=== PATIENT | male | born 1980 | race Caucasian/White ===

== ENCOUNTER 2017-04-21 18:49 | Emergency (ER) | payer OTHER ==
--- NOTE | 2017-04-21 22:56 | ED NURSING NOTES ---
Clinical Report - Nurses [facility] [address] [place] [address] 04/21/2017 18:49 Patient: LUCIO WEST TRIAGE Triage time 19:44. Acuity: LEVEL 3. Chief Complaint: ABDOMINAL PAIN, NAUSEA and VOMITING. --19:49 Sean Pierce R.N. 19:44 04/21/17. BP: 136/86. HR: 86. RR: 16. O2 saturation: 100%. Temp: 97.9 F. Pain level now: 08/10. --19:49 Sean Pierce R.N. Weight: 68 kg. --19:47 Sean Pierce R.N.. Height/Length: 67 inches. BMI: 23.5. --19:43 Sean Pierce R.N. Medications Amitriptyline HCl External. Omeprazole Oral. Oscimin Sublingual. OxyCODONE HCl Oral. Phenergan (Promethazine) Oral. PROzac Oral. Reglan Oral. --19:45 Sean Pierce R.N. Medication/allergy information source: the patient. --19:49 Sean Pierce R.N. Allergies Ketamine. (Hallucinations) Toradol. Definite Severe(swelling) Vicodin. Definite Moderate(nausea) Zofran. Definite Moderate(swelling) --19:45 Sean Pierce R.N. History Arrived by private vehicle. Historian: patient. ( 4 day history of abdominal pain with nausea and vomiting, diarrhea 3/7 ago but not anymore. No fever.). Onset. (4 days ago). He has had severe nausea. It has been similar to previous symptoms, vomiting. The vomiting has been dark in color and abdominal pain. The pain is described as generalized. 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 (Oxycodone). SURGERY HX: Appendectomy. Back surgery. Craniotomy. Left knee surgery. SOCIAL HX: Light tobacco smoker (cigarette)- less than 1/2 a pack per day. --19:49 Sean Pierce R.N. Interventions ID band on patient. To room. --19:49 Sean Pierce R.N. PHYSICAL ASSESSMENT Ambulatory to room. GENERAL / NEURO / PSYCH: Alert. Oriented X 4. Appears in no acute distress. HEENT: Mucous membranes are pink. RESPIRATORY: Respirations not labored. Breath sounds within normal limits. CVS: Capillary refill less than 2 seconds. GI / : The patient has had constant nausea. Dark emesis noted. Abdomen soft. Abdominal tenderness diffusely. Bowel sounds within normal limits. SKIN: Skin is warm. Skin is slightly diaphoretic. --19:50 Sean Pierce R.N. NURSING PROGRESS NOTES Patient gowned. Head of bed elevated. Patient identifiers checked. Call light placed in reach. Side rails up x 1. Bed placed in lowest position. Brakes of bed on. Patient ready for evaluation- ED physician and INDIVIDUAL PENSION ADVISER notified. --19:50 Sean Pierce R.N. 21:04/21/2017 Site #1 started via IV in the right wrist with an 22g angiocath; one attempt. Blood drawn: rainbow set. Labeled in the presence of the patient and sent to the lab. Saline lock flushed with 5 mL saline. --21:07 Sean Pierce R.N. 21:04/21/2017 Started IV Fluids IV NS (Saline); bolus of 1000 mL over 1 hour(s) via site #1 via IV pump. Allergies verified and confirmed 5 rights. IV patency established. IV site checked: no pain, redness, or swelling. IV flushed thoroughly pre- and post-medication administration. --21: Sean Pierce R.N. 21:04/21/2017 Reglan (Metoclopramide HCl) IVP 10 mg given over 2 hour(s) via site #1. Allergies verified and confirmed 5 rights. IV patency established. IV site checked: no pain, redness, or swelling. IV flushed thoroughly pre- and post-medication administration. IVP given by RN. --21: Sean Pierce R.N. Patient ID band checked: patient confirmed. Blood samples drawn from the right wrist with Vacutainer: rainbow set. GI / : The patient reports generalized abdominal pain that is moderate in severity, is described as crampy and is associated with nausea. --21:11 Sean Pierce R.N. 21:13 04/21/2017 PHENERGAN (Promethazine HCl) IVP 12.5 mg given over 5 minute(s) via site #1. Allergies verified and confirmed 5 rights. IV patency established. IV site checked: no pain, redness, or swelling. IV flushed thoroughly pre- and post-medication administration. IVP given by RN. --21:13 Sean Pierce R.N. 21:15 04/21/17. BP: 132/80. HR: 90. RR: 18. O2 saturation: 100%. Pain level now: 07/10. --21:17 Sean Pierce R.N. Reassessment after medication administered. Overall patient status is the same- he states feels the same. GI / : The patient reports nausea. The patient reports abdominal pain. Bowel sounds within normal limits. SKIN: Skin is warm. Skin color within normal limits. --21:17 Sean Pierce R.N. 22:44 04/21/2017 KCL (Potassium Chloride ER) PO Tablets 40 meq given. Allergies verified and confirmed 5 rights. --22:49 Sean Pierce R.N. 22:46 04/21/2017 PHENERGAN (Promethazine HCl) IVP 12.5 mg given over 5 minute(s) via site #1. Allergies verified and confirmed 5 rights. IV patency established. IV site checked: no pain, redness, or swelling. IV flushed thoroughly pre- and post-medication administration. --22:51 Sean Pierce R.N. 22:46 04/21/2017 HALDOL (Haloperidol Lactate) IVP 2 mg given over 3 minute(s) via site #1. Allergies verified, confirmed 5 rights and sedative warning given to the patient. IV patency established. IV site checked: no pain, redness, or swelling. IV flushed thoroughly pre- and post-medication administration. IVP given by RN. --22:51 Sean Pierce R.N. 22:51 04/21/17. BP: 114/78. HR: 82. RR: 18. O2 saturation: 100%. Temp: 98.5 F. --22:53 Sean Pierce R.N. Reassessment after medication administered. He is resting quietly. Overall patient status is improved- he states feels better. GI / : The patient reports nausea that is mild in severity. The patient reports vomiting is still present but improving, with emesis that is currently described as dark. Abdomen soft. Bowel sounds within normal limits. SKIN: Skin is warm and dry. Skin color within normal limits. --22:53 Sean Pierce R.N. 22:00. Reassessment after medication administered. He is sleeping. --22:54 Sean Pierce R.N. 23:18 04/21/2017 IV Fluids IV NS Discontinued: bag #1 infused upon discharge. Total amount infused: 1000 mL. IV patency established. IV site checked: no pain, redness, or swelling. IV flushed thoroughly. --23:28 Sean Pierce R.N. DISPOSITION / DISCHARGE 23:22 04/21/2017 Site #1 removed upon discharge. Manual pressure applied. --23:27 Sean Pierce R.N. No learning barriers present. Discharge instructions provided and reviewed with the patient. Reviewed medication(s) side effects, precautions, dosing and course information. Prescription(s) given to the patient. Reviewed referral to a primary care physician. Patient verbalized understanding. Written instructions provided in French. The patient was discharged home. He left the Emergency Department ambulatory and via ([employer]). Driving ([employer]). --23:29 Sean Pierce R.N. 23:27 04/21/17. BP: 122/75. HR: 86. RR: 16. O2 saturation: 100%. Temp: 98.7 F. --23:29 Sean Pierce R.N. Departure time: :29. --23:29 Sean Pierce R.N. Locked/Released at 04/21/2017 23:30 by Saen Pierce R.N.
--- NOTE | 2017-04-21 22:56 | ED CLINICAL REPORT ---
Clinical Report - Physicians/Mid Levels [facility] [address] [place] [address] 04/21/2017 18:49 [id number] Time Seen: 20:11 Apr 21 2017. Arrived- By private vehicle. Historian- patient. HISTORY OF PRESENT ILLNESS Chief Complaint: VOMITING and DIARRHEA. This started just prior to arrival and is still present. No recent travel. No vomiting or black stools. The illness is described as mild. (Patient reports diarrhea vomiting over the last 6-7 days. Reports occasional abdominal pain, which has been making him have inability to tolerate his at home medications. Patient reports history of this, with history of prior hospitalizations. History of prior endoscopy, colonoscopy. Patient also in addition has history of chronic back pain, for which she takes narcotics. Vomiting exacerbates his back pain.). REVIEW OF SYSTEMS No fever. All systems otherwise negative, except as recorded above. PAST HISTORY Problems: Head Injury. Pancreatitis. Gastroparesis. Cyclical vomiting syndrome. Additional Surgeries: (L) Knee Surgery. Appendectomy. Back Surgery. Craniotomy. Knee Surgery. Medications: Amitriptyline HCl External. Omeprazole Oral. Oscimin Sublingual. OxyCODONE HCl Oral. Phenergan (Promethazine) Oral. PROzac Oral. Reglan Oral. Allergies: Ketamine. (Hallucinations) Toradol. Definite Severe(swelling) Vicodin. Definite Moderate(nausea) Zofran. Definite Moderate(swelling). SOCIAL HISTORY Smoker- current status unknown. No drug use. PHYSICAL EXAM Appearance: Alert. Eyes: Eyes normal inspection. ENT: Nose normal. Neck: Normal inspection. CVS: Normal heart rate and rhythm. Heart sounds normal. Respiratory: No respiratory distress. Breath sounds normal. No accessory muscle use, rales, rhonchi or wheezes. Abdomen: Soft and nontender. No mass. No abdominal tenderness. The bowel sounds are not abnormal. Back: Normal inspection. LABS, X-RAYS, AND EKG Laboratory Tests: CBC w Diff: (ADRIA: 04/21/2017 21:05) ( MsgRcvd 04/21/2017 21:27) Final results Test Result Flag Units (Reference) WHITE BLOOD COUNT 13.6 H K/uL (4.5-11.5) RED BLOOD COUNT 5.65 M/uL (4.50-5.90) HEMOGLOBIN 14.7 gm/dL (13.5-17.5) HEMATOCRIT 44.6 % (41.0-53.0) MEAN CELL VOLUME 79 L fL (80-100) MEAN CORPUSCULAR HGB 26 pg (26-34) MEAN CORPUSCULAR HGB CONC 33 g/dL (31-37) RED CELL DISTRIBUTION WIDTH 17.6 H % (11.6-14.8) PLATELET COUNT 401 H K/uL (150-400) NEUTROPHIL % 76.9 H % (50-75) LYMPH % 14.4 L % (25-40) MONO % 8.1 % (3-14) EOSINOPHIL % 0 % (0-4) BASOPHIL % 0.6 % (0-2) CMP: (ADRIA: 04/21/2017 21:05) ( MsgRcvd 04/21/2017 21:43) Final results Test Result Flag Units (Reference) GLUCOSE 131 H mg/dL (70-110) BUN 25 H mg/dL (7-18) CREATININE 1.3 mg/dL (0.6-1.3) Estimated GFR >60 mL/min Estimated GFR- >60 mL/min Note: Persistent reduction over 3 months in eGFR<60 mL/min/1.73 m2 defines CKD. Patients with eGFR values>=60 mL/min/1.73 m2 may also have CKD if evidence ofpersistent proteinuria. Additional information may be foundat www.kidney.org. SODIUM 140 mmol/L (136-145) POTASSIUM 3.1 L mmol/L (3.5-5.1) CHLORIDE 100 mmol/L (98-107) CARBON DIOXIDE 26 mmol/L (21-32) CALCIUM 9.7 mg/dL (8.5-10.1) TOTAL PROTEIN 8.7 H g/dL (6.4-8.2) ALBUMIN 4.1 g/dL (3.3-5.0) BILIRUBIN, TOTAL 0.5 mg/dL (0.0-1.0) ALKALINE PHOSPHATASE 129 H U/L (46-116) AST (SGOT) 18 U/L (15-37) ALT (SGPT) 28 U/L (12-78) LIPASE 120 U/L (73-393) . PROGRESS AND PROCEDURES Course of Care: IMMANUEL reviewed as well as recent patient ER visit to [place] on the , as well as an attempt to be seen today, however left without being seen from the waiting room. Discussed concerns with patient. In addition reviewed notes from his pain specialist in regard to know opiate in his urinalysis, however positive for other drug use, and this his pain specialist has stopped prescribing him medications, opiod in nature. 04/21/2017 22:51 BP: 114/78. HR: 82. RR: 18. O2 saturation: 100%. Temp: 98.5 F. Patient is stable. Symptoms better. Patient/family counseled. Differential Diagnosis: I considered gastritis, gastroenteritis, acute appendicitis, mesenteric lymphadenitis, diverticulitis, small bowel obstruction, gallbladder disease, liver disease, pancreatic disease, biliary colic, abdominal pathology, intraabdominal abscess, urologic or gynecologic causes, urinary tract infection, cystitis, ovarian cyst, abdominal aortic aneurysm, myocardial infarction, pneumonia, diabetic ketoacidosis and medications as a possible cause of abdominal pain in this patient. This is a partial list of diagnoses considered. Disposition: Discharged. Condition: good. CLINICAL IMPRESSION Vomiting with nausea, dehydration and volume depletion. Chronic abdominal pain. Hypokalemia INSTRUCTIONS Do not work for two days. Drink plenty of fluids for the next 24 hours. Take clear liquids only. Prescription Medications: Phenergan 12.5 mg suppositories: insert 1 rectally every 6 hours as needed for nausea. Dispense ten (10) Klor-Con 10 mEq: take 1 tablet orally every 8 hours. Dispense twenty (20). No refills. Substitution is permissible. Follow-up: Follow up with your doctor in two days. (Electronically signed by Catalina Woo P.A.-C 04/21/2017 23:30)
--- NOTE | 2017-04-21 22:56 | ED ORDER SUMMARY ---
..... Patient: LUCIO WEST OrderSheet [facility] VisitID: [id number] [address] [place] [address] 36y, M Registration Date/Time: 04/21/2017 ORDER SHEET Weight: 68.0 kg Allergies: Ketamine, Toradol, Vicodin, Zofran GENERAL ORDERS: CBC w Diff Urgent (20:04/21/2017 EKoroleva P.A.-C) (20:39 CHernandez R.N.) CMP Urgent (20:04/21/2017 EKoroleva P.A.-C) (20:39 CHernandez R.N.) UA-Culture if indicated Urgent (20:04/21/2017 EKoroleva P.A.-C) (20:39 CHernandez R.N.) Lipase Urgent (20:04/21/2017 EKoroleva P.A.-C) (20:39 CHernandez R.N.) MEDICATION ORDERS: Phenergan IV 12.5 mg (HIGH ALERT MEDICATION, NOW) (20:09 04/21/2017 EKoroleva P.A.-C) (Ack 20:39 CHernandez R.N.) (21:13 CHernandez R.N.) KCl PO 40 meq (NOW) (21:45 04/21/2017 EKoroleva P.A.-C) (Ack 22:36 CHernandez R.N.) (22:49 CHernandez R.N.) Phenergan IV 12.5 mg (HIGH ALERT MEDICATION, NOW) (22:32 04/21/2017 EKoroleva P.A.-C) (Ack 22:36 CHernandez R.N.) (22:51 CHernandez R.N.) IV FLUIDS: IV NS : initial bolus 1000 mL (1000 mL/hr), then 1000 mL/hr for X1 (NOW); Adal (20:04/21/2017 EKoroleva P.A.-C) (Ack 20:39 CHernandez R.N.) (21:09 CHernandez R.N.) Reglan IV 10 mg (NOW) (20:04/21/2017 EKoroleva P.A.-C) (Ack 20:39 Shelia Campbell) (21:09 Shelia Campbell) Haldol IV 2 mg (HIGH ALERT MEDICATION, NOW) (22:32 04/21/2017 Bethany Lundberg) (Ack 22:36 Shelia Campbell) (22:51 Shelia Campbell) ORDER SHEET NOTES: [Electronically signed by eSan Pierce R.N. (23:30 04/21/2017)] [Electronically signed by Catalina Woo P.A.-C (23:30 04/21/2017)] [Electronically locked/signed by Sean Pierce R.N. (23:30 04/21/2017)]
--- NOTE | 2017-04-21 22:56 | ED NURSING NOTES ---
Clinical Report - Nurses [facility] [address] [place] [address] 04/21/2017 18:49 Patient: LUCIO WEST TRIAGE Triage time 19:44. Acuity: LEVEL 3. Chief Complaint: ABDOMINAL PAIN, NAUSEA and VOMITING. --19:49 Sean Pierce R.N. 19:44 04/21/17. BP: 136/86. HR: 86. RR: 16. O2 saturation: 100%. Temp: 97.9 F. Pain level now: 08/10. --19:49 Sean Pierce R.N. Weight: 68 kg. --19:47 Sean Pierce R.N.. Height/Length: 67 inches. BMI: 23.5. --19:43 Sean Pierce R.N. Medications Amitriptyline HCl External. Omeprazole Oral. Oscimin Sublingual. OxyCODONE HCl Oral. Phenergan (Promethazine) Oral. PROzac Oral. Reglan Oral. --19:45 Sean Pierce R.N. Medication/allergy information source: the patient. --19:49 Sean Pierce R.N. Allergies Ketamine. (Hallucinations) Toradol. Definite Severe(swelling) Vicodin. Definite Moderate(nausea) Zofran. Definite Moderate(swelling) --19:45 Sean Pierce R.N. History Arrived by private vehicle. Historian: patient. ( 4 day history of abdominal pain with nausea and vomiting, diarrhea 3/7 ago but not anymore. No fever.). Onset. (4 days ago). He has had severe nausea. It has been similar to previous symptoms, vomiting. The vomiting has been dark in color and abdominal pain. The pain is described as generalized. 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 (Oxycodone). SURGERY HX: Appendectomy. Back surgery. Craniotomy. Left knee surgery. SOCIAL HX: Light tobacco smoker (cigarette)- less than 1/2 a pack per day. --19:49 Sean Pierce R.N. Interventions ID band on patient. To room. --19:49 Sean Pierce R.N. PHYSICAL ASSESSMENT Ambulatory to room. GENERAL / NEURO / PSYCH: Alert. Oriented X 4. Appears in no acute distress. HEENT: Mucous membranes are pink. RESPIRATORY: Respirations not labored. Breath sounds within normal limits. CVS: Capillary refill less than 2 seconds. GI / : The patient has had constant nausea. Dark emesis noted. Abdomen soft. Abdominal tenderness diffusely. Bowel sounds within normal limits. SKIN: Skin is warm. Skin is slightly diaphoretic. --19:50 Sean Pierce R.N. NURSING PROGRESS NOTES Patient gowned. Head of bed elevated. Patient identifiers checked. Call light placed in reach. Side rails up x 1. Bed placed in lowest position. Brakes of bed on. Patient ready for evaluation- ED physician and MERGERS AND ACQUISITIONS CONSULTANT notified. --19:50 Sean Pierce R.N. 21:04/21/2017 Site #1 started via IV in the right wrist with an 22g angiocath; one attempt. Blood drawn: rainbow set. Labeled in the presence of the patient and sent to the lab. Saline lock flushed with 5 mL saline. --21:07 Sean Pierce R.N. 21:04/21/2017 Started IV Fluids IV NS (Saline); bolus of 1000 mL over 1 hour(s) via site #1 via IV pump. Allergies verified and confirmed 5 rights. IV patency established. IV site checked: no pain, redness, or swelling. IV flushed thoroughly pre- and post-medication administration. --21: Sean Pierce R.N. 21:04/21/2017 Reglan (Metoclopramide HCl) IVP 10 mg given over 2 hour(s) via site #1. Allergies verified and confirmed 5 rights. IV patency established. IV site checked: no pain, redness, or swelling. IV flushed thoroughly pre- and post-medication administration. IVP given by RN. --21: Sean Pierce R.N. Patient ID band checked: patient confirmed. Blood samples drawn from the right wrist with Vacutainer: rainbow set. GI / : The patient reports generalized abdominal pain that is moderate in severity, is described as crampy and is associated with nausea. --21:11 Sean Pierce R.N. 21:13 04/21/2017 PHENERGAN (Promethazine HCl) IVP 12.5 mg given over 5 minute(s) via site #1. Allergies verified and confirmed 5 rights. IV patency established. IV site checked: no pain, redness, or swelling. IV flushed thoroughly pre- and post-medication administration. IVP given by RN. --21:13 Sean Pierce R.N. 21:15 04/21/17. BP: 132/80. HR: 90. RR: 18. O2 saturation: 100%. Pain level now: 07/10. --21:17 Sean Pierce R.N. Reassessment after medication administered. Overall patient status is the same- he states feels the same. GI / : The patient reports nausea. The patient reports abdominal pain. Bowel sounds within normal limits. SKIN: Skin is warm. Skin color within normal limits. --21:17 Sean Pierce R.N. 22:44 04/21/2017 KCL (Potassium Chloride ER) PO Tablets 40 meq given. Allergies verified and confirmed 5 rights. --22:49 Sean Pierce R.N. 22:46 04/21/2017 PHENERGAN (Promethazine HCl) IVP 12.5 mg given over 5 minute(s) via site #1. Allergies verified and confirmed 5 rights. IV patency established. IV site checked: no pain, redness, or swelling. IV flushed thoroughly pre- and post-medication administration. --22:51 Sean Pierce R.N. 22:46 04/21/2017 HALDOL (Haloperidol Lactate) IVP 2 mg given over 3 minute(s) via site #1. Allergies verified, confirmed 5 rights and sedative warning given to the patient. IV patency established. IV site checked: no pain, redness, or swelling. IV flushed thoroughly pre- and post-medication administration. IVP given by RN. --22:51 Sean Pierce R.N. 22:51 04/21/17. BP: 114/78. HR: 82. RR: 18. O2 saturation: 100%. Temp: 98.5 F. --22:53 Sean Pierce R.N. Reassessment after medication administered. He is resting quietly. Overall patient status is improved- he states feels better. GI / : The patient reports nausea that is mild in severity. The patient reports vomiting is still present but improving, with emesis that is currently described as dark. Abdomen soft. Bowel sounds within normal limits. SKIN: Skin is warm and dry. Skin color within normal limits. --22:53 Sean Pierce R.N. 22:00. Reassessment after medication administered. He is sleeping. --22:54 Sean Pierce R.N. 23:18 04/21/2017 IV Fluids IV NS Discontinued: bag #1 infused upon discharge. Total amount infused: 1000 mL. IV patency established. IV site checked: no pain, redness, or swelling. IV flushed thoroughly. --23:28 Sean Pierce R.N. DISPOSITION / DISCHARGE 23:22 04/21/2017 Site #1 removed upon discharge. Manual pressure applied. --23:27 Sean Pierce R.N. No learning barriers present. Discharge instructions provided and reviewed with the patient. Reviewed medication(s) side effects, precautions, dosing and course information. Prescription(s) given to the patient. Reviewed referral to a primary care physician. Patient verbalized understanding. Written instructions provided in Turkish. The patient was discharged home. He left the Emergency Department ambulatory and via ([employer]). Driving ([employer]). --23:29 Sean Pierce R.N. 23:27 04/21/17. BP: 122/75. HR: 86. RR: 16. O2 saturation: 100%. Temp: 98.7 F. --23:29 Sean Pierce R.N. Departure time: :29. --23:29 Sean Pierce R.N. Locked/Released at 04/21/2017 23:30 by Sean Pierce R.N.
--- NOTE | 2017-04-21 22:56 | ED ORDER SUMMARY ---
..... Patient: LUCIO WEST OrderSheet [facility] VisitID: [id number] [address] [place] [address] 36y, M Registration Date/Time: 04/21/2017 ORDER SHEET Weight: 68.0 kg Allergies: Ketamine, Toradol, Vicodin, Zofran GENERAL ORDERS: CBC w Diff Urgent (20:04/21/2017 EKoroleva P.A.-C) (20:39 CHernandez R.N.) CMP Urgent (20:04/21/2017 EKoroleva P.A.-C) (20:39 CHernandez R.N.) UA-Culture if indicated Urgent (20:04/21/2017 EKoroleva P.A.-C) (20:39 CHernandez R.N.) Lipase Urgent (20:04/21/2017 EKoroleva P.A.-C) (20:39 CHernandez R.N.) MEDICATION ORDERS: Phenergan IV 12.5 mg (HIGH ALERT MEDICATION, NOW) (20:09 04/21/2017 EKoroleva P.A.-C) (Ack 20:39 CHernandez R.N.) (21:13 CHernandez R.N.) KCl PO 40 meq (NOW) (21:45 04/21/2017 EKoroleva P.A.-C) (Ack 22:36 CHernandez R.N.) (22:49 CHernandez R.N.) Phenergan IV 12.5 mg (HIGH ALERT MEDICATION, NOW) (22:32 04/21/2017 EKoroleva P.A.-C) (Ack 22:36 CHernandez R.N.) (22:51 CHernandez R.N.) IV FLUIDS: IV NS : initial bolus 1000 mL (1000 mL/hr), then 1000 mL/hr for X1 (NOW); Adal (20:04/21/2017 EKoroleva P.A.-C) (Ack 20:39 CHernandez R.N.) (21:09 CHernandez R.N.) Reglan IV 10 mg (NOW) (20:04/21/2017 EKoroleva P.A.-C) (Ack 20:39 Shelia Campbell) (21:09 Shelia Campbell) Haldol IV 2 mg (HIGH ALERT MEDICATION, NOW) (22:32 04/21/2017 Bethany Lundberg) (Ack 22:36 Shelia Campbell) (22:51 Shelia Campbell) ORDER SHEET NOTES: [Electronically signed by Sean Pierce R.N. (23:30 04/21/2017)] [Electronically signed by Catalina Woo P.A.-C (23:30 04/21/2017)] [Electronically locked/signed by Sean Pierce R.N. (23:30 04/21/2017)]
--- NOTE | 2017-04-21 23:30 | ED MED RECONCILIATION SUMMARY ---
Patient: LUCIO WEST Medication Reconciliation Report [facility] VisitID: [id number] [address] [place] [address] 36y, M Registration Date/Time: 04/21/2017 Weight: 68.0 kg Height/Length: 67 in. BMI: 23.5 ALLERGIES: Ketamine, Toradol, Vicodin, Zofran The patient's Home Medications are listed below: THE FOLLOWING MEDICATIONS NEED TO BE RECONCILED: Amitriptyline HCl External Omeprazole Oral Oscimin Sublingual OxyCODONE HCl Oral Phenergan (Promethazine) Oral PROzac Oral Reglan Oral The source(s) of the original Home Medication information: patient The following Medications were given to the patient in the Emergency Department: IV NS IV Fluids bolus 1000 mL over 1 hour(s), administered: 04/21/2017 9:09:00 PM Reglan [IVP] IVP 10 mg, administered: 04/21/2017 9:09:00 PM PHENERGAN [IVP] IVP 12.5 mg, administered: 04/21/2017 9:13:00 PM KCL [PO] PO 40 meq, administered: 04/21/2017 10:44:00 PM PHENERGAN [IVP] IVP 12.5 mg, administered: 04/21/2017 10:46:00 PM HALDOL [IVP] IVP 2 mg, administered: 04/21/2017 10:46:00 PM The following Medications were prescribed to the patient: Phenergan 12.5 mg suppositories: insert 1 rectally every 6 hours as needed for nausea. Dispense ten (10) -- Catalina Woo P.AMehreen Klor-Con 10 mEq: take 1 tablet orally every 8 hours. Dispense twenty (20). No refills. Substitution is permissible. -- Catalina Woo P.ANadir-C
--- NOTE | 2017-04-21 23:30 | ED MAR SUMMARY ---
..... Medication Administration Record [facility] [address] [place] [address] Patient: LUCIO WEST Visit ID: [id number] 36y, M Weight: 68.0 kg Height/Length: 67 in BMI: 23.5 ALLERGIES: Ketamine, Toradol, Vicodin, Zofran Start 21:04/21/2017 Sean Pierce R.N., Stop 23:18 04/21/2017 Sean Pierce R.N. Medication Administered: IV NS (SALINE), Dose: IV Fluids, Bolus: 1000 mL over 1 hour(s), Site: #1 right wrist. Medication Ordered: IV NS : initial bolus 1000 mL (1000 mL/hr), then 1000 mL/hr for X1 (NOW); Adal. Given 21:04/21/2017 Sean Pierce R.N. Medication Administered: REGLAN [IVP] (METOCLOPRAMIDE HCL), Dose: 10 mg IVP over 2 hour(s), Site: #1 right wrist. Medication Ordered: Reglan IV 10 mg (NOW). Given 21:13 04/21/2017 Sean Pierce R.N. Medication Administered: PHENERGAN [IVP] (PROMETHAZINE HCL), Dose: 12.5 mg IVP over 5 minute(s), Site: #1 right wrist. Medication Ordered: Phenergan IV 12.5 mg (HIGH ALERT MEDICATION, NOW). Given 22:44 04/21/2017 Sean Pierce R.N. Medication Administered: KCL [PO] (POTASSIUM CHLORIDE ER), Dose: 40 meq Tablets PO. Medication Ordered: KCl PO 40 meq (NOW). Given 22:46 04/21/2017 Sean Pierce R.N. Medication Administered: PHENERGAN [IVP] (PROMETHAZINE HCL), Dose: 12.5 mg IVP over 5 minute(s), Site: #1 right wrist. Medication Ordered: Phenergan IV 12.5 mg (HIGH ALERT MEDICATION, NOW). Given 22:46 04/21/2017 Sean Pierce R.N. Medication Administered: HALDOL [IVP] (HALOPERIDOL LACTATE), Dose: 2 mg IVP over 3 minute(s), Site: #1 right wrist. Medication Ordered: Haldol IV 2 mg (HIGH ALERT MEDICATION, NOW).
--- NOTE | 2017-04-21 23:30 | ED MED RECONCILIATION SUMMARY ---
Patient: LUCIO WEST Medication Reconciliation Report [facility] VisitID: [id number] [address] [place] [address] 36y, M Registration Date/Time: 04/21/2017 Weight: 68.0 kg Height/Length: 67 in. BMI: 23.5 ALLERGIES: Ketamine, Toradol, Vicodin, Zofran The patient's Home Medications are listed below: THE FOLLOWING MEDICATIONS NEED TO BE RECONCILED: Amitriptyline HCl External Omeprazole Oral Oscimin Sublingual OxyCODONE HCl Oral Phenergan (Promethazine) Oral PROzac Oral Reglan Oral The source(s) of the original Home Medication information: patient The following Medications were given to the patient in the Emergency Department: IV NS IV Fluids bolus 1000 mL over 1 hour(s), administered: 04/21/2017 9:09:00 PM Reglan [IVP] IVP 10 mg, administered: 04/21/2017 9:09:00 PM PHENERGAN [IVP] IVP 12.5 mg, administered: 04/21/2017 9:13:00 PM KCL [PO] PO 40 meq, administered: 04/21/2017 10:44:00 PM PHENERGAN [IVP] IVP 12.5 mg, administered: 04/21/2017 10:46:00 PM HALDOL [IVP] IVP 2 mg, administered: 04/21/2017 10:46:00 PM The following Medications were prescribed to the patient: Phenergan 12.5 mg suppositories: insert 1 rectally every 6 hours as needed for nausea. Dispense ten (10) -- Catalina Woo P.AMehreen Klor-Con 10 mEq: take 1 tablet orally every 8 hours. Dispense twenty (20). No refills. Substitution is permissible. -- Catalina Woo P.ANadir-C
--- NOTE | 2017-04-21 23:30 | ED MAR SUMMARY ---
..... Medication Administration Record [facility] [address] [place] [address] Patient: LUCIO WEST Visit ID: [id number] 36y, M Weight: 68.0 kg Height/Length: 67 in BMI: 23.5 ALLERGIES: Ketamine, Toradol, Vicodin, Zofran Start 21:04/21/2017 Sean Pierce R.N., Stop 23:18 04/21/2017 Sean Pierce R.N. Medication Administered: IV NS (SALINE), Dose: IV Fluids, Bolus: 1000 mL over 1 hour(s), Site: #1 right wrist. Medication Ordered: IV NS : initial bolus 1000 mL (1000 mL/hr), then 1000 mL/hr for X1 (NOW); Adal. Given 21:04/21/2017 Sean Pierce R.N. Medication Administered: REGLAN [IVP] (METOCLOPRAMIDE HCL), Dose: 10 mg IVP over 2 hour(s), Site: #1 right wrist. Medication Ordered: Reglan IV 10 mg (NOW). Given 21:13 04/21/2017 Sean Pierce R.N. Medication Administered: PHENERGAN [IVP] (PROMETHAZINE HCL), Dose: 12.5 mg IVP over 5 minute(s), Site: #1 right wrist. Medication Ordered: Phenergan IV 12.5 mg (HIGH ALERT MEDICATION, NOW). Given 22:44 04/21/2017 Sean Pierce R.N. Medication Administered: KCL [PO] (POTASSIUM CHLORIDE ER), Dose: 40 meq Tablets PO. Medication Ordered: KCl PO 40 meq (NOW). Given 22:46 04/21/2017 Sean Pierce R.N. Medication Administered: PHENERGAN [IVP] (PROMETHAZINE HCL), Dose: 12.5 mg IVP over 5 minute(s), Site: #1 right wrist. Medication Ordered: Phenergan IV 12.5 mg (HIGH ALERT MEDICATION, NOW). Given 22:46 04/21/2017 Sean Pierce R.N. Medication Administered: HALDOL [IVP] (HALOPERIDOL LACTATE), Dose: 2 mg IVP over 3 minute(s), Site: #1 right wrist. Medication Ordered: Haldol IV 2 mg (HIGH ALERT MEDICATION, NOW).
--- NOTE | 2017-04-21 23:30 | ED DISCHARGE INSTRUCTIONS ---
Patient: LUCIO WEST General Instructions [facility] VisitID: [id number] [place] [address] 36y, M Registration Date/Time: 04/21/2017 Vomiting with nausea, dehydration and volume depletion. Chronic abdominal pain. Hypokalemia INSTRUCTIONS Do not work for two days. Drink plenty of fluids for the next 24 hours. Take clear liquids only. Prescription Medications: Phenergan 12.5 mg suppositories: insert 1 rectally every 6 hours as needed for nausea. Dispense ten (10) Klor-Con 10 mEq: take 1 tablet orally every 8 hours. Dispense twenty (20). No refills. Substitution is permissible. Follow-up: Follow up with your doctor in two days. ADDITIONAL INFORMATION Vomiting [6Yr-Adult] Vomiting is a common symptom that may be due to different causes. These include gastroenteritis ("stomach flu"), food poisoning and gastritis. There are other more serious causes of vomiting which may be hard to diagnose early in the illness. Therefore, it is important to watch for the warning signs listed below. The main danger from repeated vomiting is dehydration. This is due to excess loss of water and minerals from the body. When this occurs, body fluids must be replaced. Home Care: If symptoms are severe, rest at home for the next 24 hours. You may use acetaminophen (Tylenol) or ibuprofen (Motrin, Advil) to control fever, unless another medicine was prescribed. [NOTE : If you have chronic liver or kidney disease or ever had a stomach ulcer or GI bleeding, talk with your doctor before using these medicines.] (Aspirin should never be used in anyone under 18 years of age who is ill with a fever. It may cause severe liver damage.) Avoid tobacco and alcohol use, which may worsen your symptoms. If medicines for vomiting were prescribed, take as directed. Once vomiting stops, then follow these guidelines: During The First 12-24 Hours follow the diet below: FRUIT JUICES: Apple, grape juice, clear fruit drinks, and electrolyte replacement drinks. BEVERAGES: Soft drinks without caffeine; mineral water (plain or flavored), decaffeinated tea and coffee. SOUPS: Clear broth, consomm and bouillon DESSERTS: Plain gelatin, popsicles and fruit juice bars. As you feel better, you may add 6-8 ounces of yogurt per day. During The Next 24 Hours you may add the following to the above: Hot cereal, plain toast, bread, rolls, crackers Plain noodles, rice, mashed potatoes, chicken noodle or rice soup Unsweetened canned fruit (avoid pineapple), bananas Limit caffeine and chocolate. No spices or seasonings except salt. During The Next 24 Hours Gradually resume a normal diet, as you feel better and your symptoms lessen. Follow Up with your doctor as advised if you are not improving over the next 2-3 days. Get Prompt Medical Attention if any of the following occur: Constant right-sided lower abdominal pain or increasing general abdominal pain Continued vomiting (unable to keep liquids down) for 24 hours Frequent diarrhea (more than 5 times a day); blood (red or black color) or mucus in diarrhea Reduced urine output or extreme thirst Weakness, dizziness or fainting Unusually drowsy or confused Fever of 100.4F (38C) oral or higher, not better with fever medication Yellow color of the eyes or skin Hypokalemia Hypokalemia means a low level of potassium in the blood. This most often occurs in patients who take diuretics (water pills). It can also occur due to severe vomiting or diarrhea. A mild case usually causes no symptoms. It is only found with blood testing. More severe potassium loss causes generalized weakness, muscle or abdominal cramping, heart palpitations (rapid or irregular heartbeats) and low blood pressure. Home Care: 1) Take any potassium supplements prescribed. 2) Eat foods rich in potassium. The highest amount is found in artichoke, baked potatoes, spinach, cantaloupe, honeydew melon, cod, halibut, salmon, and scallops. White, red, or navarro beans are also very good sources. A modest amount is found in orange juice, bananas, carrots, and tomato juice. 3) Certain types of diuretics (water pills), such as Lasix (furosemide), require that you take potassium supplements for as long as you take the diuretic pills. If you are taking a diuretic, discuss the need for potassium supplements with your doctor. Follow Up with your doctor for a repeat blood test within the next week or as advised by our staff. Get Prompt Medical Attention if any of the following occur: -- Increased weakness -- Feeling dizzy -- Irregular heartbeat, extra beats or very fast heart rate -- Fainting spell You have been given the following additional information: Vomiting (6Y-Adult) Hypokalemia Do not work for two days. (Electronically signed by Catalina Woo P.A.-C 04/21/2017 23:30)
== END 2017-04-21 23:28 | disposition home or self-care (01) ==
LOC: ED SRH 18:49
DX: R11.2 Nausea with vomiting, unspecified (principal); E86.0 Dehydration; E87.6 Hypokalemia; Z79.899 Other long term (current) drug therapy; Z79.891 Long term (current) use of opiate analgesic; Z88.5 Allergy status to narcotic agent; Z88.8 Allergy status to other drugs, medicaments and biological substances
CPT/HCPCS: 90074; 90100; 92235; 95059

== ENCOUNTER 2017-05-24 08:36 | Emergency (ER) | payer OTHER ==
--- NOTE | 2017-05-24 12:56 | DIAGNOSTIC IMAGING REPORT ---
PROCEDURE: CT ABD/PELVIS WITH CONTRAST CLINICAL INDICATION: ABDOMINAL PAIN TECHNIQUE: 125 ml of Isovue 300 were injected intravenously and axial images were obtained of the entire abdomen and pelvis with sagittal and coronal reformations. COMPARISON: None. FINDINGS: ABDOMEN: Lung base are clear. Heart size is normal. NG tube with the tip in the stomach. Liver, gallbladder, pancreas, spleen, adrenal glands, kidneys and abdominal aorta are normal. There are several nondilated fluid filled loops of small bowel. PELVIS: Status post appendectomy. Normal prostate and bladder. No pelvic mass, inflammatory changes or free fluid. Moderate degenerative changes of the L5-S1 disc level. IMPRESSION: 1. NG tube in place 2. Several nondilated fluid filled loops of small bowel which may be normal or represent enteritis 3. Appendectomy 4. Results discussed with Dr. Pedersen All CT scans at this facility use dose modulation, iterative reconstruction, and/or weight-based dosing when appropriate to reduce radiation dose to as low as reasonably achievable.
--- NOTE | 2017-05-24 14:10 | ED ORDER SUMMARY ---
..... Patient: LUCIO WEST OrderSheet [facility] VisitID: [id number] [place] [address] 36y, M Registration Date/Time: 05/24/2017 ORDER SHEET Weight: 68.0 kg (stated) Allergies: Ketamine, Toradol, Vicodin, Zofran GENERAL ORDERS: CBC w Diff Urgent (08:52 05/24/2017 Ken Garcia) (Ack 8:54 Fany) (10:55 LWhalen R.N.) CMP Urgent (08:05/24/2017 Ken Garcia) (Ack 8:54 Fany) (10:55 LWhalen R.N.) UA-Culture if indicated Urgent (08:05/24/2017 Ken Garcia) (Ack 8:54 Fany) (12:15 LWhalen R.N.) Amylase Urgent (08:05/24/2017 Ken Garcia) (Ack 8:54 RKpierre) (10:55 LWhalen R.N.) Lipase Urgent (08:52 05/24/2017 Ken Garcia) (Ack 8:54 Fany) (10:55 LWhalen R.N.) Urine Drug Screen Urgent (08:52 05/24/2017 Ken Garcia) (Ack 8:54 RKfabiuga) (10:55 LWhalen R.N.) NG Tube (10:09 05/24/2017 Ken Garcia) (10:55 LWhalen R.N.) CT Abd/Pel w Cont (No) (15/0.9) Urgent (11:21 05/24/2017 Ken Garcia) (Ack 11:26 RKpierre) (12:15 LWhalen R.N.) MEDICATION ORDERS: Phenergan IV 25 mg (NOW) (08:52 05/24/2017 Jacoboivan R.N. verbal order read back to Stephen GALEANA) (Cancelled: Other9:06 LWhalen R.N.) Promethazine IV 25 mg (HIGH ALERT MEDICATION, NOW) (08:52 05/24/2017 Ken Garcia) (9:06 LWhalen R.N.) IV FLUIDS: IV NS : initial bolus none -, then 1000 mL/hr for X1 (NOW) (08:52 05/24/2017 Ken Garcia) (9:06 Moses R.N.) Reglan IV 10 mg (NOW) (09:37 05/24/2017 Ken Garcia) (Ack 10:12 Johnnie R.N.) (10:13 LWromi R.N.) Haldol IV 3 mg (HIGH ALERT MEDICATION, NOW) (10:49 05/24/2017 Ken Garcia) (10:57 LWromi R.N.) Ativan IV 1 mg (HIGH ALERT MEDICATION, NOW) (13:22 05/24/2017 Ken Garcia) (13:47 LWromi R.N.) ORDER SHEET NOTES: [Electronically signed by Barbara Tucker R.N. (16:25 05/24/2017)] [Electronically signed by Devon Pedersen Dr. (21:44 05/24/2017)] [Electronically locked/signed by Barbara Tucker R.N. (16:25 05/24/2017)]
--- NOTE | 2017-05-24 14:10 | ED NURSING NOTES ---
Clinical Report - [facility] [address] [place] [address] 05/24/2017 8:42 [id number] TRI[facility] Triage time 08:45 May 24 2017. Acuity: LEVEL 3. Chief Complaint: ABDOMINAL PAIN, NAUSEA, VOMITING and DIARRHEA. JO ANN COMA SCORE: [place] Coma Scale: 15- eyes open spontaneously (4); best verbal response- oriented x 4 (5); best motor response- obeys commands (6). --09:03 Barbara Tucker R.N. 08:48 05/24/17. BP: 150/105. HR: 79. RR: 18. O2 saturation: 100%. Temp: 98.2 F. Pain level now 1010. --09:03 Barbara Tucker R.N. Weight: 68 kg stated. Height/Length: 67 inches Per Patient. BMI: 23.5. --08:48 Barbara Tucker R.N. Medications Amitriptyline HCl External. Omeprazole Oral. Oscimin Sublingual. OxyCODONE HCl Oral. Phenergan (Promethazine) Oral. PROzac Oral. Reglan Oral. --08:46 Barbara Tucker R.N. Allergies Ketamine. (Hallucinations) Toradol. Definite Severe(swelling) Vicodin. Definite Moderate(nausea) Zofran. Definite Moderate(swelling) --08:46 Barbara Tucker R.N. History Arrived by EMS. Historian: patient. This started just prior to arrival. He has had nausea, vomiting, diarrhea and abdominal pain. No constipation or fever. Last oral intake by patient was dinner. SOCIAL HX: Current every day light tobacco smoker (cigarette)- less than 1/2 a pack per day. No alcohol use or drug use. No recent travel. No known contact with a sick individual. SELF HARM ASSESSMENT: A self harm assessment was performed. The patient answered "no" to the question "Have you recently felt down, depressed, or hopeless?" and "Do you have thoughts of harming or killing yourself?". FALL RISK ASSESSMENT: Fall risk assessment completed. No fall risk identified. NUTRITIONAL RISK ASSESSMENT: The nutritional risk assessment revealed no deficiencies. FUNCTIONAL ASSESSMENT: Functional assessment: no impairments noted. LEARNING NEEDS ASSESSMENT: The learning needs assessment revealed no barriers. ABUSE ASSESSMENT: Abuse assessment: (yes) The patient was asked "Do you feel safe in your home?". SKIN INTEGRITY ASSESSMENT: Skin integrity risk assessment completed. No skin integrity risk identified. --09:03 Barbara Tucker R.N. PROBLEMS: Hypokalemia. Abdominal Pain. Vomiting. Head Injury. Pancreatitis. Gastroparesis. Cyclical vomiting syndrome. --08:47 Barbara Tucker R.N. ADDITIONAL SURGERIES: (L) Knee Surgery. Appendectomy. Back Surgery. Craniotomy. Knee Surgery. --08:47 Barbara Tucker R.N. Interventions ID band on patient. --09:03 Barbara Tucker R.N. PHYSICAL ASSESSMENT To room via stretcher. GENERAL / NEURO / PSYCH: Alert. Oriented X 4. Appears anxious and in distress. HEENT: Mucous membranes are pink. RESPIRATORY: Respirations not labored. Breath sounds within normal limits. CVS: Normal sinus rhythm noted. Capillary refill less than 2 seconds. GI / : The patient has had nausea and diarrhea. Emesis noted. Abdominal distention. Abdominal tenderness. ( decreased BT in lower left quad). SKIN: Skin is warm and dry. --09:03 Barbara Tucker R.N. NURSING PROGRESS NOTES The initial plan of care for this patient includes an assessment with efforts to address patient positioning, appropriate ambient lighting and comfortable environmental temperature; impairment of the gastrointestinal system. Pulse oximeter and NIBP monitor placed on patient. Patient gowned. Head of bed elevated 45 degrees. Reassurance given. Call light placed in reach. Side rails up x 2. Bed placed in lowest position. Brakes of bed on. --09:04 Barbara Tucker R.N. 08:55 05/24/2017 Site #1 accessed indwelling [place] in the right using a 20g, 1 inch needle; 1 attempt. Good blood return noted. Site prepped with chlorhexidine. Flushed with 10 mL saline. --09:05 Barbara Tucker R.N. 09:05/24/2017 Started bag #1 1000 mL IV Fluids IV NS (Saline); at 1000 mL/hr over 1 hour(s) via site #1 via IV pump. Allergies verified and confirmed 5 rights. IV patency established. IV site checked: no pain, redness, or swelling. IV flushed thoroughly pre- and post-medication administration. --09:06 Barbara Tucker R.N. 09:05/24/2017 PROMETHAZINE IVP 25 mg given over 2 minute(s) via site #1. Allergies verified and confirmed 5 rights. IV patency established. IV site checked: no pain, redness, or swelling. IV flushed thoroughly pre- and post-medication administration. --09:06 Barbara Tucker R.N. <<STRICKEN ENTRY-- 09:29. Blood samples drawn by lab: pediatric blood culture. (with assist of RN). --09:30 Meaghan Chappell R.N. --END STRIKE>> Correction --09:30 Meaghan Chappell R.N. 09:29. Blood samples drawn by lab (pediatric tubes). (with assist of RN). --09:33 Meaghan Chappell R.N. 10:08 05/24/2017 Reglan (Metoclopramide HCl) IVP 10 mg given over 2 minute(s) via site #1. Allergies verified and confirmed 5 rights. IV patency established. IV site checked: no pain, redness, or swelling. IV flushed thoroughly pre- and post-medication administration. --10:13 Barbara Tucker R.N. 11:58 05/24/17. BP: 141/90. HR: 88. RR: 18. O2 saturation: 97%. --12:01 Barbara Tucker R.N. 11:15 05/24/17. BP: 145/83. HR: 86. RR: 18. O2 saturation: 100%. 10:15 05/24/17. BP: 143/84. HR: 92. RR: 18. O2 saturation: 100%. 09:15 05/24/17. BP: 138/81. HR: 98. RR: 18. O2 saturation: 100%. --12:01 Barbara Tucker R.N. Patient transported to [place] by stretcher with tech. --12:19 Meaghan Chappell R.N. late entry - 10:20 05/24/17. 16 fr NG tube inserted in right nostril with no difficulty. Placement confirmed by auscultation and return of gastric contents. Return: yellow, brown fluid. Tube secured. Attached to intermittent suction. Patient tolerated procedure well. --16:25 Barbara Tucker R.N. 10:57 05/24/2017 HALDOL (Haloperidol Lactate) IVP 3 mg given over 2 minute(s) via site #1. Allergies verified, confirmed 5 rights and sedative warning given to the patient. IV patency established. IV site checked: no pain, redness, or swelling. IV flushed thoroughly pre- and post-medication administration. --10:57 Barbara Tucker R.N. 13:42 05/24/2017 Ativan (LORazepam) IVP 1 mg given over 2 minute(s) via site #1. Allergies verified, confirmed 5 rights and sedative warning given to the patient. IV patency established. IV site checked: no pain, redness, or swelling. IV flushed thoroughly pre- and post-medication administration. --13:47 Barbara Tucker R.N. DISPOSITION / DISCHARGE 10:30 05/24/2017 IV Fluids IV NS Discontinued: bag #1 infused. Total amount infused: 1000 mL. IV patency established. IV site checked: no pain, redness, or swelling. IV flushed thoroughly. --14:15 Barbara Tucker R.N. 14:14 05/24/2017 Site #1 removed upon discharge. Catheter intact. Pressure dressing applied. --14:14 Barbara Tucker R.N. Nasogastric tube discontinued. Condition at departure: improved. No learning barriers present. Discharge instructions provided and reviewed with the patient. Reviewed warnings. Reviewed medication(s). Treatments reviewed. Reviewed referrals. Patient verbalized understanding. Written instructions provided in Georgian. The patient was discharged home. He left the Emergency Department ambulatory and via ([employer] Driving ([employer]). --14:15 Barbara Tucker R.N. 14:13 05/24/17. BP: 123/81. HR: 88. RR: 18. O2 saturation: 100%. Temp: 98.6 F. Pain level now 05/10. --14:15 Barbara Tucker R.N. Departure time: 14:May 24 2017. --14:21 Barbara Tucker R.N. Locked/Released at 05/24/2017 16:25 by Barbara Tucker R.N.
--- NOTE | 2017-05-24 14:10 | ED ORDER SUMMARY ---
..... Patient: LUCIO WEST OrderSheet [facility] VisitID: [id number] [place] [address] 36y, M Registration Date/Time: 05/24/2017 ORDER SHEET Weight: 68.0 kg (stated) Allergies: Ketamine, Toradol, Vicodin, Zofran GENERAL ORDERS: CBC w Diff Urgent (08:52 05/24/2017 Ken Garcia) (Ack 8:54 Fany) (10:55 LWhalen R.N.) CMP Urgent (08:05/24/2017 Ken Garcia) (Ack 8:54 Fany) (10:55 LWhalen R.N.) UA-Culture if indicated Urgent (08:05/24/2017 Ken Garcia) (Ack 8:54 Fany) (12:15 LWhalen R.N.) Amylase Urgent (08:05/24/2017 Ken Garcia) (Ack 8:54 RKpierre) (10:55 LWhalen R.N.) Lipase Urgent (08:52 05/24/2017 Ken Garcia) (Ack 8:54 Fany) (10:55 LWhalen R.N.) Urine Drug Screen Urgent (08:52 05/24/2017 Ken Garcia) (Ack 8:54 RKfabiuga) (10:55 LWhalen R.N.) NG Tube (10:09 05/24/2017 Ken Garcia) (10:55 LWhalen R.N.) CT Abd/Pel w Cont (No) (15/0.9) Urgent (11:21 05/24/2017 Ken Garcia) (Ack 11:26 RKpierre) (12:15 LWhalen R.N.) MEDICATION ORDERS: Phenergan IV 25 mg (NOW) (08:52 05/24/2017 Jacoboivan R.N. verbal order read back to Stephen GALEANA) (Cancelled: Other9:06 LWhalen R.N.) Promethazine IV 25 mg (HIGH ALERT MEDICATION, NOW) (08:52 05/24/2017 Ken Garcia) (9:06 LWhalen R.N.) IV FLUIDS: IV NS : initial bolus none -, then 1000 mL/hr for X1 (NOW) (08:52 05/24/2017 Ken Garcia) (9:06 Moses R.N.) Reglan IV 10 mg (NOW) (09:37 05/24/2017 Ken Garcia) (Ack 10:12 Johnnie R.N.) (10:13 LWromi R.N.) Haldol IV 3 mg (HIGH ALERT MEDICATION, NOW) (10:49 05/24/2017 Ken Garcia) (10:57 LWromi R.N.) Ativan IV 1 mg (HIGH ALERT MEDICATION, NOW) (13:22 05/24/2017 Ken Garcia) (13:47 LWromi R.N.) ORDER SHEET NOTES: [Electronically signed by Barbara Tucker R.N. (16:25 05/24/2017)] [Electronically signed by Devon Pedersen Dr. (21:44 05/24/2017)] [Electronically locked/signed by Barbara Tucker R.N. (16:25 05/24/2017)]
--- NOTE | 2017-05-24 14:10 | ED CLINICAL REPORT ---
Clinical Report - Physicians/Mid Levels [facility] [address] [place] [address] 05/24/2017 8:42 Patient: LUCIO WEST Time Seen: 0852; initial patient contact. Arrived- By private vehicle. Historian- patient. HISTORY OF PRESENT ILLNESS Chief Complaint: VOMITING. This started today and is still present. It was abrupt in onset and has been constant. The patient has had nausea and vomiting. No diarrhea, black stools, bloody stools or abdominal pain. The illness is described as moderate. Similar symptoms previously: Many times. Recent medical care: Not recently seen/assessed. REVIEW OF SYSTEMS No fever, muscle aches or dark urine. All systems otherwise negative, except as recorded above. PAST HISTORY Hypokalemia. Abdominal Pain. Vomiting. Head Injury. Pancreatitis. Gastroparesis. Cyclical vomiting syndrome. ADDITIONAL SURGERIES: (L) Knee Surgery. Appendectomy. Back Surgery. Craniotomy. Knee Surgery. Medications: Amitriptyline HCl External. Omeprazole Oral. Oscimin Sublingual. OxyCODONE HCl Oral. Phenergan (Promethazine) Oral. PROzac Oral. Reglan Oral. Allergies: Ketamine. (Hallucinations) Toradol. Definite Severe(swelling) Vicodin. Definite Moderate(nausea) Zofran. Definite Moderate(swelling). SOCIAL HISTORY Current every day smoker. No alcohol use or drug use. ADDITIONAL NOTES The nursing notes have been reviewed. PHYSICAL EXAM Vital Signs: 05/24/2017 08:48 BP: 150/105. HR: 79. RR: 18. O2 saturation: 100%. Temp: 98.2 F. Have been reviewed. Hypertensive. Heart rate normal. Respiratory rate normal. Temperature normal. Oxygen saturation normal. Appearance: Alert. Oriented X3. Patient in mild distress. ENT: Dry mucous membranes present. CVS: Normal heart rate and rhythm. Heart sounds normal. Respiratory: No respiratory distress. Breath sounds normal. Abdomen: Soft and nontender. Bowel sounds normal. No organomegaly. No mass. Back: Normal inspection. No CVA tenderness. Skin: Skin warm and dry. Normal skin color. No rash. Extremities: No lower extremity edema. Neuro: Oriented X 3. LABS, X-RAYS, AND EKG Abdominal CT: 1. NG tube in place 2. Several nondilated fluid filled loops of small bowel which may be normal or represent enteritis 3. Appendectomy. Study type: abdomen and pelvis. Abdominal CT performed with IV contrast. The study was independently viewed by me, interpreted by the radiologist and discussed with the radiologist. Laboratory Tests: UA-Culture if indicated: (ADRIA: 05/24/2017 12:10) ( [facility] 05/24/2017 12:37) Final results Test Result Flag Units (Reference) URINE COLOR STRAW URINE APPEARANCE CLEAR URINE GLUCOSE NEGATIVE (NEGATIVE) URINE BILIRUBIN NEGATIVE (NEGATIVE) URINE KETONE NEGATIVE (NEGATIVE) URINE SPECIFIC GRAVITY 1.015 (1.010-1.030) URINE PH 6.5 (5.0-8.0) URINE PROTEIN NEGATIVE (NEGATIVE) URINE UROBILINOGEN 0.2 EU/dL (0.2-1.0) URINE NITRITE NEGATIVE (NEGATIVE) URINE BLOOD NEGATIVE (NEGATIVE) URINE LEUK ESTERASE NEGATIVE (NEGATIVE) URINE RBC NONE SEEN rbc/hpf (0-1) URINE WBC RARE wbc/hpf (0-1) URINE EPITHELIAL CELLS NONE SEEN EPI/hpf (0-5) URINE BACTERIA NONE SEEN (NONE SEEN) URINE COMMENT CULT NOT INDICATED URINE CULTURES ARE SET-UP BASED ON THE FOLLOWING CRITERIA:POSITIVE NITRITEPOSITIVE LEUKOCYTE ESTERASEGREATER THAN 10 WHITE BLOOD CELLSMODERATE (2+) OR GREATER BACTERIA CBC w Diff: (ADRIA: 05/24/2017 09:25) ( [facility] 05/24/2017 09:52) Final results Test Result Flag Units (Reference) WHITE BLOOD COUNT 14.7 H K/uL (4.5-11.5) RED BLOOD COUNT 5.27 M/uL (4.50-5.90) HEMOGLOBIN 14.1 gm/dL (13.5-17.5) HEMATOCRIT 42.5 % (41.0-53.0) MEAN CELL VOLUME 81 fL (80-100) MEAN CORPUSCULAR HGB 27 pg (26-34) MEAN CORPUSCULAR HGB CONC 33 g/dL (31-37) RED CELL DISTRIBUTION WIDTH 17.1 H % (11.6-14.8) PLATELET COUNT 313 K/uL (150-400) NEUTROPHIL % 85.8 H % (50-75) LYMPH % 12.9 L % (25-40) MONO % 0.4 L % (3-14) EOSINOPHIL % 0.9 % (0-4) BASOPHIL % 0 % (0-2) Urine Drug Screen: (ADRIA: 05/24/2017 12:10) ( [facility] 05/24/2017 12:34) Final results Test Result Flag Units (Reference) AMPHETAMINE/METHAMPHETAMINE NEGATIVE (NEGATIVE) BARBITURATE NEGATIVE (NEGATIVE) BENZODIAZEPINE NEGATIVE (NEGATIVE) CANNABINOID NEGATIVE (NEGATIVE) COCAINE NEGATIVE (NEGATIVE) ECSTASY NEGATIVE (NEGATIVE) METHADONE NEGATIVE (NEGATIVE) OPIATE NEGATIVE (NEGATIVE) The urine drug screen is a qualitative screening test fordrug overdose and abuse. All screen results should beconsidered as presumptive.Drugs screened for are as follows:BenzodiazepinesCocaineAmphetamines/MetamphetaminesTHC (Tetrahydrocannabinol)OpiatesBarbituratesEcstasyMethadonePositive results are unconfirmed. For confirmation, notifythe lab for the specimen to be sent to the reference lab.All confirmations must be performed by a differentmethodology.The ingestion of natural herbal and plant productscontaining Ephedra/Ephedra metabolites can produce in urineone or more substances capable of cross reacting withamphetamine/methamphetamine immunoassays. These testsprovide a preliminary result only. A more specificalternative chemical method must be used to obtain aconfirmed analytical result. CMP: (ADRIA: 05/24/2017 09:25) ( [facility] 05/24/2017 10:10) Final results Test Result Flag Units (Reference) GLUCOSE 90 mg/dL (70-110) BUN 15 mg/dL (7-18) CREATININE 0.9 mg/dL (0.6-1.3) Estimated GFR >60 mL/min Estimated GFR- >60 mL/min Note: Persistent reduction over 3 months in eGFR<60 mL/min/1.73 m2 defines CKD. Patients with eGFR values>=60 mL/min/1.73 m2 may also have CKD if evidence ofpersistent proteinuria. Additional information may be foundat www.kidney.org. SODIUM 135 L mmol/L (136-145) POTASSIUM 5.6 H mmol/L (3.5-5.1) MODERATE HEMOLYSIS; UNSUCCESSFULL ATTEMPT AT REDRAW. CHLORIDE 103 mmol/L (98-107) CARBON DIOXIDE 20 L mmol/L (21-32) CALCIUM 8.7 mg/dL (8.5-10.1) TOTAL PROTEIN 7.6 g/dL (6.4-8.2) ALBUMIN 3.5 g/dL (3.3-5.0) BILIRUBIN, TOTAL 0.6 mg/dL (0.0-1.0) ALKALINE PHOSPHATASE 98 U/L (46-116) AST (SGOT) 35 U/L (15-37) ALT (SGPT) 24 U/L (12-78) LIPASE 185 U/L (73-393) AMYLASE 62 U/L (25-115) . PROGRESS AND PROCEDURES Disposition: Discharged home in good and improved condition. Condition: good. CLINICAL IMPRESSION Chronic gastroparesis (Idiopathic). INSTRUCTIONS Your Current Medications: CONTINUE TAKING THE FOLLOWING MEDICATIONS: Amitriptyline HCl External. Omeprazole Oral. Oscimin Sublingual. OxyCODONE HCl Oral. Phenergan (Promethazine) Oral. PROzac Oral. Reglan Oral. Prescription Medications: Ativan 0.5 mg: take 1 orally every 8 hours as needed for anxiety. Dispense ten (10). No refill. Substitution is permissible. Bentyl 20 mg tablets: take 1 orally every 6 hours as needed for abdominal cramps or abdominal discomfort. Dispense thirty (30). No refill. Substitution is permissible. Phenergan Tablets 25 mg: take 1 tablet orally every 6 hours as needed for nausea and vomiting. Dispense fifteen (15). No refill. Substitution is permissible Follow-up: Follow up with your doctor in about two days. Call for an appointment. Screening today revealed the patient's blood pressure to be in the hypertensive range. The patient should follow up with a primary care provider for blood pressure management. (Electronically signed by Devon Pedersen Dr. 05/24/2017 21:44)
--- NOTE | 2017-05-24 21:45 | ED MED RECONCILIATION SUMMARY ---
Patient: LUCIO WEST Medication Reconciliation Report [facility] VisitID: [id number] [address] [place] [address] 36y, M Registration Date/Time: 05/24/2017 Weight: 68.0 kg Height/Length: 67 in. BMI: 23.5 ALLERGIES: Ketamine, Toradol, Vicodin, Zofran The patient's Home Medications are listed below: CONTINUE TAKING THE FOLLOWING MEDICATIONS: Amitriptyline HCl External Omeprazole Oral Oscimin Sublingual OxyCODONE HCl Oral Phenergan (Promethazine) Oral PROzac Oral Reglan Oral The source(s) of the original Home Medication information: Not obtained. The following Medications were given to the patient in the Emergency Department: IV NS IV Fluids bolus 0, then 1000 mL/hr, administered: 05/24/2017 9:01:00 AM PROMETHAZINE [IVP] IVP 25 mg, administered: 05/24/2017 9:01:00 AM Reglan [IVP] IVP 10 mg, administered: 05/24/2017 10:08:00 AM HALDOL [IVP] IVP 3 mg, administered: 05/24/2017 10:57:00 AM Ativan [IVP] IVP 1 mg, administered: 05/24/2017 1:42:00 PM The following Medications were prescribed to the patient: Ativan 0.5 mg: take 1 orally every 8 hours as needed for anxiety. Dispense ten (10). No refill. Substitution is permissible. -- Devon Pedersen Dr. Bentyl 20 mg tablets: take 1 orally every 6 hours as needed for abdominal cramps or abdominal discomfort. Dispense thirty (30). No refill. Substitution is permissible. -- Devon Pedersen Dr. Phenergan Tablets 25 mg: take 1 tablet orally every 6 hours as needed for nausea and vomiting. Dispense fifteen (15). No refill. Substitution is permissible -- Devon Pedersen Dr.
--- NOTE | 2017-05-24 21:45 | ED MED RECONCILIATION SUMMARY ---
Patient: LUCIO WEST Medication Reconciliation Report [facility] VisitID: [id number] [address] [place] [address] 36y, M Registration Date/Time: 05/24/2017 Weight: 68.0 kg Height/Length: 67 in. BMI: 23.5 ALLERGIES: Ketamine, Toradol, Vicodin, Zofran The patient's Home Medications are listed below: CONTINUE TAKING THE FOLLOWING MEDICATIONS: Amitriptyline HCl External Omeprazole Oral Oscimin Sublingual OxyCODONE HCl Oral Phenergan (Promethazine) Oral PROzac Oral Reglan Oral The source(s) of the original Home Medication information: Not obtained. The following Medications were given to the patient in the Emergency Department: IV NS IV Fluids bolus 0, then 1000 mL/hr, administered: 05/24/2017 9:01:00 AM PROMETHAZINE [IVP] IVP 25 mg, administered: 05/24/2017 9:01:00 AM Reglan [IVP] IVP 10 mg, administered: 05/24/2017 10:08:00 AM HALDOL [IVP] IVP 3 mg, administered: 05/24/2017 10:57:00 AM Ativan [IVP] IVP 1 mg, administered: 05/24/2017 1:42:00 PM The following Medications were prescribed to the patient: Ativan 0.5 mg: take 1 orally every 8 hours as needed for anxiety. Dispense ten (10). No refill. Substitution is permissible. -- Devon Pedersen Dr. Bentyl 20 mg tablets: take 1 orally every 6 hours as needed for abdominal cramps or abdominal discomfort. Dispense thirty (30). No refill. Substitution is permissible. -- Devon Pedersen Dr. Phenergan Tablets 25 mg: take 1 tablet orally every 6 hours as needed for nausea and vomiting. Dispense fifteen (15). No refill. Substitution is permissible -- Devon Pedersen Dr.
--- NOTE | 2017-05-24 21:45 | ED MAR SUMMARY ---
..... Medication Administration Record [facility] [address] [place] [address] Patient: LUCIO WEST Visit ID: [id number] 36y, M Weight: 68.0 kg Height/Length: 67 in BMI: 23.5 ALLERGIES: Ketamine, Toradol, Vicodin, Zofran Start 09:01 05/24/2017 Barbara Tucker R.N., Stop 10:30 05/24/2017 Barbara Tucker R.N. Medication Administered: IV NS (SALINE), Dose: IV Fluids over 1 hour(s), Rate: 1000 mL/hr, Dispensed: 1000 mL bag, Site: #1 right. Medication Ordered: IV NS : initial bolus none -, then 1000 mL/hr for X1 (NOW). Given 09:01 05/24/2017 Barbara Tucker R.N. Medication Administered: PROMETHAZINE [IVP], Dose: 25 mg IVP over 2 minute(s), Site: #1 right. Medication Ordered: Promethazine IV 25 mg (HIGH ALERT MEDICATION, NOW). Given 10:08 05/24/2017 Barbara Tucker R.N. Medication Administered: REGLAN [IVP] (METOCLOPRAMIDE HCL), Dose: 10 mg IVP over 2 minute(s), Site: #1 right. Medication Ordered: Reglan IV 10 mg (NOW). Given 10:57 05/24/2017 Barbara Tucker R.N. Medication Administered: HALDOL [IVP] (HALOPERIDOL LACTATE), Dose: 3 mg IVP over 2 minute(s), Site: #1 right. Medication Ordered: Haldol IV 3 mg (HIGH ALERT MEDICATION, NOW). Given 13:42 05/24/2017 Barbara Tucker R.N. Medication Administered: ATIVAN [IVP] (LORAZEPAM), Dose: 1 mg IVP over 2 minute(s), Site: #1 right. Medication Ordered: Ativan IV 1 mg (HIGH ALERT MEDICATION, NOW).
--- NOTE | 2017-05-24 21:45 | ED MAR SUMMARY ---
..... Medication Administration Record [facility] [address] [place] [address] Patient: LUCIO WEST Visit ID: [id number] 36y, M Weight: 68.0 kg Height/Length: 67 in BMI: 23.5 ALLERGIES: Ketamine, Toradol, Vicodin, Zofran Start 09:01 05/24/2017 Barbara Tucker R.N., Stop 10:30 05/24/2017 Barbara Tucker R.N. Medication Administered: IV NS (SALINE), Dose: IV Fluids over 1 hour(s), Rate: 1000 mL/hr, Dispensed: 1000 mL bag, Site: #1 right. Medication Ordered: IV NS : initial bolus none -, then 1000 mL/hr for X1 (NOW). Given 09:01 05/24/2017 Barbara Tucker R.N. Medication Administered: PROMETHAZINE [IVP], Dose: 25 mg IVP over 2 minute(s), Site: #1 right. Medication Ordered: Promethazine IV 25 mg (HIGH ALERT MEDICATION, NOW). Given 10:08 05/24/2017 Barbara Tucker R.N. Medication Administered: REGLAN [IVP] (METOCLOPRAMIDE HCL), Dose: 10 mg IVP over 2 minute(s), Site: #1 right. Medication Ordered: Reglan IV 10 mg (NOW). Given 10:57 05/24/2017 Barbara Tucker R.N. Medication Administered: HALDOL [IVP] (HALOPERIDOL LACTATE), Dose: 3 mg IVP over 2 minute(s), Site: #1 right. Medication Ordered: Haldol IV 3 mg (HIGH ALERT MEDICATION, NOW). Given 13:42 05/24/2017 Barbara Tucker R.N. Medication Administered: ATIVAN [IVP] (LORAZEPAM), Dose: 1 mg IVP over 2 minute(s), Site: #1 right. Medication Ordered: Ativan IV 1 mg (HIGH ALERT MEDICATION, NOW).
--- NOTE | 2017-05-24 21:45 | ED DISCHARGE INSTRUCTIONS ---
Patient: LUCIO WEST General Instructions [facility] VisitID: [id number] [place] [address] 36y, M Registration Date/Time: 05/24/2017 Chronic gastroparesis (Idiopathic). INSTRUCTIONS Your Current Medications: CONTINUE TAKING THE FOLLOWING MEDICATIONS: Amitriptyline HCl External. Omeprazole Oral. Oscimin Sublingual. OxyCODONE HCl Oral. Phenergan (Promethazine) Oral. PROzac Oral. Reglan Oral. Prescription Medications: Ativan 0.5 mg: take 1 orally every 8 hours as needed for anxiety. Dispense ten (10). No refill. Substitution is permissible. Bentyl 20 mg tablets: take 1 orally every 6 hours as needed for abdominal cramps or abdominal discomfort. Dispense thirty (30). No refill. Substitution is permissible. Phenergan Tablets 25 mg: take 1 tablet orally every 6 hours as needed for nausea and vomiting. Dispense fifteen (15). No refill. Substitution is permissible Follow-up: Follow up with your doctor in about two days. Call for an appointment. Screening today revealed the patient's blood pressure to be in the hypertensive range. The patient should follow up with a primary care provider for blood pressure management. ADDITIONAL INFORMATION Lorazepam Oral tablet What is this medicine? LORAZEPAM (jeromy A ze dinora) is a benzodiazepine. It is used to treat anxiety. How should I use this medicine? Take this medicine by mouth with a glass of water. Follow the directions on the prescription label. If it upsets your stomach, take it with food or milk. Take your medicine at regular intervals. Do not take it more often than directed. Do not stop taking except on the advice of your doctor or health child daycare worker. Talk to your peoplesoft crm developer regarding the use of this medicine in children. Special care may be needed. What side effects may I notice from receiving this medicine? Side effects that you should report to your doctor or health child daycare worker as soon as possible: changes in vision confusion depression mood changes, excitability or aggressive behavior movement difficulty, staggering or jerky movements muscle cramps restlessness weakness or tiredness Side effects that usually do not require medical attention (report to your doctor or health child daycare worker if they continue or are bothersome): constipation or diarrhea difficulty sleeping, nightmares dizziness, drowsiness headache nausea, vomiting What may interact with this medicine? barbiturate medicines for inducing sleep or treating seizures, like phenobarbital clozapine medicines for depression, mental problems or psychiatric disturbances medicines for sleep phenytoin probenecid theophylline valproic acid What if I miss a dose? If you miss a dose, take it as soon as you can. If it is almost time for your next dose, take only that dose. Do not take double or extra doses. Where should I keep my medicine? Keep out of the reach of children. This medicine can be abused. Keep your medicine in a safe place to protect it from theft. Do not share this medicine with anyone. Selling or giving away this medicine is dangerous and against the law. Store at room temperature between 20 and 25 degrees C (68 and 77 degrees F). Protect from light. Keep container tightly closed. Throw away any unused medicine after the expiration date. What should I tell my health care provider before I take this medicine? They need to know if you have any of these conditions: alcohol or drug abuse problem bipolar disorder, depression, psychosis or other mental health condition glaucoma kidney or liver disease lung disease or breathing difficulties myasthenia gravis Parkinson's disease seizures or a history of seizures suicidal thoughts an unusual or allergic reaction to lorazepam, other benzodiazepines, foods, dyes, or preservatives or trying to get breast-feeding What should I watch for while using this medicine? Visit your doctor or health child daycare worker for regular checks on your progress. Your body may become dependent on this medicine, ask your doctor or health child daycare worker if you still need to take it. However, if you have been taking this medicine regularly for some time, do not suddenly stop taking it. You must gradually reduce the dose or you may get severe side effects. Ask your doctor or health child daycare worker for advice before increasing or decreasing the dose. Even after you stop taking this medicine it can still affect your body for several days. You may get drowsy or dizzy. Do not drive, use machinery, or do anything that needs mental alertness until you know how this medicine affects you. To reduce the risk of dizzy and fainting spells, do not stand or sit up quickly, especially if you are an older patient. Alcohol may increase dizziness and drowsiness. Avoid alcoholic drinks. Do not treat yourself for coughs, colds or allergies without asking your doctor or health child daycare worker for advice. Some ingredients can increase possible side effects. Dicyclomine Hydrochloride Oral tablet What is this medicine? DICYCLOMINE (dye CASIEE fanta hernandez) is used to treat bowel problems including irritable bowel syndrome. How should I use this medicine? Take this medicine by mouth with a glass of water. Follow the directions on the prescription label. It is best to take this medicine on an empty stomach, 30 minutes to 1 hour before meals. Take your medicine at regular intervals. Do not take your medicine more often than directed. Talk to your peoplesoft crm developer regarding the use of this medicine in children. Special care may be needed. While this drug may be prescribed for children as young as 6 months of age for selected conditions, precautions do apply. Patients over 65 years old may have a stronger reaction and need a smaller dose. What side effects may I notice from receiving this medicine? Side effects that you should report to your doctor or health child daycare worker as soon as possible: agitation, nervousness, confusion difficulty swallowing dizziness, drowsiness fast or slow heartbeat hallucinations pain or difficulty passing urine Side effects that usually do not require medical attention (report to your doctor or health child daycare worker if they continue or are bothersome): constipation headache nausea or vomiting sexual difficulty What may interact with this medicine? amantadine antacids benztropine digoxin disopyramide medicines for allergies, colds and breathing difficulties medicines for alzheimer's disease medicines for anxiety or sleeping problems medicines for depression or psychotic disturbances medicines for diarrhea medicines for pain metoclopramide tegaserod What if I miss a dose? If you miss a dose, take it as soon as you can. If it is almost time for your next dose, take only that dose. Do not take double or extra doses. Where should I keep my medicine? Keep out of the reach of children. Store at room temperature below 30 degrees C (86 degrees F). Protect from light. Throw away any unused medicine after the expiration date. What should I tell my health care provider before I take this medicine? They need to know if you have any of these conditions: difficulty passing urine esophagus problems or heartburn glaucoma heart disease, or previous heart attack myasthenia gravis prostate trouble stomach infection, or obstruction ulcerative colitis an unusual or allergic reaction to dicyclomine, other medicines, foods, dyes, or preservatives or trying to get breast-feeding What should I watch for while using this medicine? You may get drowsy, dizzy, or have blurred vision. Do not drive, use machinery, or do anything that needs mental alertness until you know how this medicine affects you. To reduce the risk of dizzy or fainting spells, do not sit or stand up quickly, especially if you are an older patient. Alcohol can make you more drowsy, avoid alcoholic drinks. Stay out of bright light and wear sunglasses if this medicine makes your eyes more sensitive to light. Avoid extreme heat (hot tubs, saunas). This medicine can cause you to sweat less than normal. Your body temperature could increase to dangerous levels, which may lead to heat stroke. Antacids can stop this medicine from working. If you get an upset stomach and want to take an antacid, make sure there is an interval of at least 1 to 2 hours before or after you take this medicine. Your mouth may get dry. Chewing sugarless gum or sucking hard candy, and drinking plenty of water may help. Contact your doctor if the problem does not go away or is severe. Promethazine Hydrochloride Oral tablet What is this medicine? PROMETHAZINE (proe METH a zeen) is an antihistamine. It is used to treat allergic reactions and to treat or prevent nausea and vomiting from illness or motion sickness. It is also used to make you sleep before surgery, and to help treat pain or nausea after surgery. How should I use this medicine? Take this medicine by mouth with a glass of water. Follow the directions on the prescription label. Take your doses at regular intervals. Do not take your medicine more often than directed. Talk to your peoplesoft crm developer regarding the use of this medicine in children. Special care may be needed. This medicine should not be given to infants and children younger than 2 years old. What side effects may I notice from receiving this medicine? Side effects that you should report to your doctor or health child daycare worker as soon as possible: blurred vision irregular heartbeat, palpitations or chest pain muscle or facial twitches pain or difficulty passing urine seizures skin rash slowed or shallow breathing unusual bleeding or bruising yellowing of the eyes or skin Side effects that usually do not require medical attention (report to your doctor or health child daycare worker if they continue or are bothersome): headache nightmares, agitation, nervousness, excitability, not able to sleep (these are more likely in children) stuffy nose What may interact with this medicine? Do not take this medicine with any of the following medications: medicines called MAO Inhibitors like Nardil, Parnate, Marplan, Eldepryl other phenothiazines like trimethobenzamide This medicine may also interact with the following medications: barbiturates like phenobarbital bromocriptine certain antidepressants certain antihistamines used in allergy or cold medicines epinephrine levodopa medicines for sleep medicines for mental problems and psychotic disturbances medicines for movement abnormalities as in Parkinson's disease, or for gastrointestinal problems muscle relaxants prescription pain medicines What if I miss a dose? If you miss a dose, take it as soon as you can. If it is almost time for your next dose, take only that dose. Do not take double or extra doses. Where should I keep my medicine? Keep out of the reach of children. Store at room temperature, between 20 and 25 degrees C (68 and 77 degrees F). Protect from light. Throw away any unused medicine after the expiration date. What should I tell my health care provider before I take this medicine? They need to know if you have any of these conditions: glaucoma high blood pressure or heart disease kidney disease liver disease lung or breathing disease, like asthma prostate trouble pain or difficulty passing urine seizures an unusual or allergic reaction to promethazine or phenothiazines, other medicines, foods, dyes, or preservatives or trying to get breast-feeding What should I watch for while using this medicine? Tell your doctor or health child daycare worker if your symptoms do not start to get better in 1 to 2 days. You may get drowsy or dizzy. Do not drive, use machinery, or do anything that needs mental alertness until you know how this medicine affects you. To reduce the risk of dizzy or fainting spells, do not stand or sit up quickly, especially if you are an older patient. Alcohol may increase dizziness and drowsiness. Avoid alcoholic drinks. Your mouth may get dry. Chewing sugarless gum or sucking hard candy, and drinking plenty of water may help. Contact your doctor if the problem does not go away or is severe. This medicine may cause dry eyes and blurred vision. If you wear contact lenses you may feel some discomfort. Lubricating drops may help. See your eye doctor if the problem does not go away or is severe. This medicine can make you more sensitive to the sun. Keep out of the sun. If you cannot avoid being in the sun, wear protective clothing and use sunscreen. Do not use sun lamps or tanning beds/booths. If you are diabetic, check your blood-sugar levels regularly. You have been given the following additional information: Lorazepam Oral tablet Dicyclomine Hydrochloride Oral tablet Promethazine Hydrochloride Oral tablet (Electronically signed by Devon Pedersen Dr. 05/24/2017 21:44)
--- NOTE | 2017-05-24 21:45 | ED DISCHARGE INSTRUCTIONS ---
Patient: LUCIO WEST General [facility] VisitID: [id number] [place] [address] 36y, M Registration Date/Time: 05/24/2017 Chronic gastroparesis (Idiopathic). INSTRUCTIONS Your Current Medications: CONTINUE TAKING THE FOLLOWING MEDICATIONS: Amitriptyline HCl External. Omeprazole Oral. Oscimin Sublingual. OxyCODONE HCl Oral. Phenergan (Promethazine) Oral. PROzac Oral. Reglan Oral. Prescription Medications: Ativan 0.5 mg: take 1 orally every 8 hours as needed for anxiety. Dispense ten (10). No refill. Substitution is permissible. Bentyl 20 mg tablets: take 1 orally every 6 hours as needed for abdominal cramps or abdominal discomfort. Dispense thirty (30). No refill. Substitution is permissible. Phenergan Tablets 25 mg: take 1 tablet orally every 6 hours as needed for nausea and vomiting. Dispense fifteen (15). No refill. Substitution is permissible Follow-up: Follow up with your doctor in about two days. Call for an appointment. Screening today revealed the patient's blood pressure to be in the hypertensive range. The patient should follow up with a primary care provider for blood pressure management. ADDITIONAL INFORMATION Lorazepam Oral tablet What is this medicine? LORAZEPAM (jeromy A ze dinora) is a benzodiazepine. It is used to treat anxiety. How should I use this medicine? Take this medicine by mouth with a glass of water. Follow the directions on the prescription label. If it upsets your stomach, take it with food or milk. Take your medicine at regular intervals. Do not take it more often than directed. Do not stop taking except on the advice of your doctor or health child care development specialist. Talk to your medicaid collection specialist regarding the use of this medicine in children. Special care may be needed. What side effects may I notice from receiving this medicine? Side effects that you should report to your doctor or health child care development specialist as soon as possible: changes in vision confusion depression mood changes, excitability or aggressive behavior movement difficulty, staggering or jerky movements muscle cramps restlessness weakness or tiredness Side effects that usually do not require medical attention (report to your doctor or health child care development specialist if they continue or are bothersome): constipation or diarrhea difficulty sleeping, nightmares dizziness, drowsiness headache nausea, vomiting What may interact with this medicine? barbiturate medicines for inducing sleep or treating seizures, like phenobarbital clozapine medicines for depression, mental problems or psychiatric disturbances medicines for sleep phenytoin probenecid theophylline valproic acid What if I miss a dose? If you miss a dose, take it as soon as you can. If it is almost time for your next dose, take only that dose. Do not take double or extra doses. Where should I keep my medicine? Keep out of the reach of children. This medicine can be abused. Keep your medicine in a safe place to protect it from theft. Do not share this medicine with anyone. Selling or giving away this medicine is dangerous and against the law. Store at room temperature between 20 and 25 degrees C (68 and 77 degrees F). Protect from light. Keep container tightly closed. Throw away any unused medicine after the expiration date. What should I tell my health care provider before I take this medicine? They need to know if you have any of these conditions: alcohol or drug abuse problem bipolar disorder, depression, psychosis or other mental health condition glaucoma kidney or liver disease lung disease or breathing difficulties myasthenia gravis Parkinson's disease seizures or a history of seizures suicidal thoughts an unusual or allergic reaction to lorazepam, other benzodiazepines, foods, dyes, or preservatives or trying to get breast-feeding What should I watch for while using this medicine? Visit your doctor or health child care development specialist for regular checks on your progress. Your body may become dependent on this medicine, ask your doctor or health child care development specialist if you still need to take it. However, if you have been taking this medicine regularly for some time, do not suddenly stop taking it. You must gradually reduce the dose or you may get severe side effects. Ask your doctor or health child care development specialist for advice before increasing or decreasing the dose. Even after you stop taking this medicine it can still affect your body for several days. You may get drowsy or dizzy. Do not drive, use machinery, or do anything that needs mental alertness until you know how this medicine affects you. To reduce the risk of dizzy and fainting spells, do not stand or sit up quickly, especially if you are an older patient. Alcohol may increase dizziness and drowsiness. Avoid alcoholic drinks. Do not treat yourself for coughs, colds or allergies without asking your doctor or health child care development specialist for advice. Some ingredients can increase possible side effects. Dicyclomine Hydrochloride Oral tablet What is this medicine? DICYCLOMINE (dye CASIEE fanta hernandez) is used to treat bowel problems including irritable bowel syndrome. How should I use this medicine? Take this medicine by mouth with a glass of water. Follow the directions on the prescription label. It is best to take this medicine on an empty stomach, 30 minutes to 1 hour before meals. Take your medicine at regular intervals. Do not take your medicine more often than directed. Talk to your medicaid collection specialist regarding the use of this medicine in children. Special care may be needed. While this drug may be prescribed for children as young as 6 months of age for selected conditions, precautions do apply. Patients over 65 years old may have a stronger reaction and need a smaller dose. What side effects may I notice from receiving this medicine? Side effects that you should report to your doctor or health child care development specialist as soon as possible: agitation, nervousness, confusion difficulty swallowing dizziness, drowsiness fast or slow heartbeat hallucinations pain or difficulty passing urine Side effects that usually do not require medical attention (report to your doctor or health child care development specialist if they continue or are bothersome): constipation headache nausea or vomiting sexual difficulty What may interact with this medicine? amantadine antacids benztropine digoxin disopyramide medicines for allergies, colds and breathing difficulties medicines for alzheimer's disease medicines for anxiety or sleeping problems medicines for depression or psychotic disturbances medicines for diarrhea medicines for pain metoclopramide tegaserod What if I miss a dose? If you miss a dose, take it as soon as you can. If it is almost time for your next dose, take only that dose. Do not take double or extra doses. Where should I keep my medicine? Keep out of the reach of children. Store at room temperature below 30 degrees C (86 degrees F). Protect from light. Throw away any unused medicine after the expiration date. What should I tell my health care provider before I take this medicine? They need to know if you have any of these conditions: difficulty passing urine esophagus problems or heartburn glaucoma heart disease, or previous heart attack myasthenia gravis prostate trouble stomach infection, or obstruction ulcerative colitis an unusual or allergic reaction to dicyclomine, other medicines, foods, dyes, or preservatives or trying to get breast-feeding What should I watch for while using this medicine? You may get drowsy, dizzy, or have blurred vision. Do not drive, use machinery, or do anything that needs mental alertness until you know how this medicine affects you. To reduce the risk of dizzy or fainting spells, do not sit or stand up quickly, especially if you are an older patient. Alcohol can make you more drowsy, avoid alcoholic drinks. Stay out of bright light and wear sunglasses if this medicine makes your eyes more sensitive to light. Avoid extreme heat (hot tubs, saunas). This medicine can cause you to sweat less than normal. Your body temperature could increase to dangerous levels, which may lead to heat stroke. Antacids can stop this medicine from working. If you get an upset stomach and want to take an antacid, make sure there is an interval of at least 1 to 2 hours before or after you take this medicine. Your mouth may get dry. Chewing sugarless gum or sucking hard candy, and drinking plenty of water may help. Contact your doctor if the problem does not go away or is severe. Promethazine Hydrochloride Oral tablet What is this medicine? PROMETHAZINE (proe METH a zeen) is an antihistamine. It is used to treat allergic reactions and to treat or prevent nausea and vomiting from illness or motion sickness. It is also used to make you sleep before surgery, and to help treat pain or nausea after surgery. How should I use this medicine? Take this medicine by mouth with a glass of water. Follow the directions on the prescription label. Take your doses at regular intervals. Do not take your medicine more often than directed. Talk to your medicaid collection specialist regarding the use of this medicine in children. Special care may be needed. This medicine should not be given to infants and children younger than 2 years old. What side effects may I notice from receiving this medicine? Side effects that you should report to your doctor or health child care development specialist as soon as possible: blurred vision irregular heartbeat, palpitations or chest pain muscle or facial twitches pain or difficulty passing urine seizures skin rash slowed or shallow breathing unusual bleeding or bruising yellowing of the eyes or skin Side effects that usually do not require medical attention (report to your doctor or health child care development specialist if they continue or are bothersome): headache nightmares, agitation, nervousness, excitability, not able to sleep (these are more likely in children) stuffy nose What may interact with this medicine? Do not take this medicine with any of the following medications: medicines called MAO Inhibitors like Nardil, Parnate, Marplan, Eldepryl other phenothiazines like trimethobenzamide This medicine may also interact with the following medications: barbiturates like phenobarbital bromocriptine certain antidepressants certain antihistamines used in allergy or cold medicines epinephrine levodopa medicines for sleep medicines for mental problems and psychotic disturbances medicines for movement abnormalities as in Parkinson's disease, or for gastrointestinal problems muscle relaxants prescription pain medicines What if I miss a dose? If you miss a dose, take it as soon as you can. If it is almost time for your next dose, take only that dose. Do not take double or extra doses. Where should I keep my medicine? Keep out of the reach of children. Store at room temperature, between 20 and 25 degrees C (68 and 77 degrees F). Protect from light. Throw away any unused medicine after the expiration date. What should I tell my health care provider before I take this medicine? They need to know if you have any of these conditions: glaucoma high blood pressure or heart disease kidney disease liver disease lung or breathing disease, like asthma prostate trouble pain or difficulty passing urine seizures an unusual or allergic reaction to promethazine or phenothiazines, other medicines, foods, dyes, or preservatives or trying to get breast-feeding What should I watch for while using this medicine? Tell your doctor or health child care development specialist if your symptoms do not start to get better in 1 to 2 days. You may get drowsy or dizzy. Do not drive, use machinery, or do anything that needs mental alertness until you know how this medicine affects you. To reduce the risk of dizzy or fainting spells, do not stand or sit up quickly, especially if you are an older patient. Alcohol may increase dizziness and drowsiness. Avoid alcoholic drinks. Your mouth may get dry. Chewing sugarless gum or sucking hard candy, and drinking plenty of water may help. Contact your doctor if the problem does not go away or is severe. This medicine may cause dry eyes and blurred vision. If you wear contact lenses you may feel some discomfort. Lubricating drops may help. See your eye doctor if the problem does not go away or is severe. This medicine can make you more sensitive to the sun. Keep out of the sun. If you cannot avoid being in the sun, wear protective clothing and use sunscreen. Do not use sun lamps or tanning beds/booths. If you are diabetic, check your blood-sugar levels regularly. You have been given the following additional information: Lorazepam Oral tablet Dicyclomine Hydrochloride Oral tablet Promethazine Hydrochloride Oral tablet (Electronically signed by Devon Pedersen Dr. 05/24/2017 21:44)
== END 2017-05-24 14:20 | disposition home or self-care (01) ==
LOC: ED SRH 08:36
DX: K31.84 Gastroparesis (principal); F17.200 Nicotine dependence, unspecified, uncomplicated; Z79.899 Other long term (current) drug therapy; Z79.891 Long term (current) use of opiate analgesic; Z88.5 Allergy status to narcotic agent; Z88.8 Allergy status to other drugs, medicaments and biological substances
CPT/HCPCS: 90004; 90100; 92235; 92530; 92760; 92761; 92762; 92763; 92764; 92765; 92766; 92767; 95059